=== PATIENT | male | born 1970 | race American Indian/Alaskan Native ===

== ENCOUNTER 2017-08-10 11:44 | Emergency (ER) | payer OTHER ==
[2017-08-10 11:47] VITALS: BMI 29.7
[2017-08-10 11:50] VITALS: BP 131/84; PULSE 95; RESP 18; TEMP 98; O2SAT 97
[2017-08-10] MEDS ORDERED: Ciprofloxacin/Dexamethasone OTIC SUSP AD STA (12:10)
[2017-08-10] MEDS ORDERED: Amoxicillin-Clav 875-125 mg Tab PO STA (12:15)
--- NOTE | 2017-08-10 12:15 | ED PDOC ---
Arrival/HPI - General Chief Complaint: ENT Problem Time Seen by Provider: 08/10/17 11:50 Historian: Patient - History of Present Illness Narrative History of Present Illness (Text): 08/10/17 12:11 47yo male with no PMHx who present with complaint of possible lodged foreign body and pain to his left ear x 2days. Notes that feeling of stucked FB to the ear started after putting iPhone ear plug in his ear. Came to ED today for the worsening pain. Denies bleeding, drainage, odor, any other complaint. Past Medical History - Provider Review Nursing Documentation Reviewed: Yes - Infectious Disease Hx of Infectious Diseases: None - Psychiatric Hx Substance Use: No - Anesthesia Hx Anesthesia: No Family/Social History - Physician Review Nursing Documentation Reviewed: Yes Family/Social History: Unknown Family HX Smoking Status: Light Smoker < 10 Cigarettes Daily Hx Alcohol Use: Yes Frequency of alcohol use: Socially Hx Substance Use: No Allergies/Home Meds Allergies/Adverse Reactions: Allergies No Known Allergies Allergy (Verified 08/10/17 11:47) Review of Systems - Physician Review All systems were reviewed & negative as marked: Yes - Review of Systems Constitutional: Normal Eyes: Normal ENT: Other (FB to left ear/pain) Respiratory: Normal Cardiovascular: Normal Gastrointestinal: Normal Genitourinary Male: Normal Musculoskeletal: Normal Skin: Normal Neurological: Normal Endocrine: Normal Hemo/Lymphatic: Normal Psychiatric: Normal Physical Exam Vital Signs Reviewed: Yes Vital Signs Temp Pulse Resp BP Pulse Ox 08/10/17 11:49 98.0 F 95 H 18 131/84 97 Temperature: Afebrile Blood Pressure: Normal Pulse: Regular Respiratory Rate: Normal Appearance: Positive for: Well-Appearing, Non-Toxic, Comfortable Pain Distress: None Mental Status: Positive for: Alert and Oriented X 3 - Systems Exam Head: Present: Atraumatic, Normocephalic Pupils: Present: PERRL Extroacular Muscles: Present: EOMI Conjunctiva: Present: Normal Ears: Present: Other (Whitish object noted in left TM) Mouth: Present: Moist Mucous Membranes Neck: Present: Normal Range of Motion Respiratory/Chest: Present: Clear to Auscultation, Good Air Exchange. No: Respiratory Distress, Accessory Muscle Use Cardiovascular: Present: Regular Rate and Rhythm, Normal S1, S2. No: Murmurs Abdomen: Present: Normal Bowel Sounds. No: Tenderness, Distention, Peritoneal Signs Back: Present: Normal Inspection Upper Extremity: Present: Normal Inspection. No: Cyanosis, Edema Lower Extremity: Present: Normal Inspection. No: Edema Neurological: Present: GCS=15, CN II-XII Intact, Speech Normal Skin: Present: Warm, Dry, Normal Color. No: Rashes Psychiatric: Present: Alert, Oriented x 3, Normal Insight, Normal Concentration Medical Decision Making ED Course and Treatment: 08/10/17 12:14 Plastic cover of ear plug removed from left war with ear curettes and clamp. TM erythema noted. No bleeding. No drainage. Pt will be started on Augmentin for otitis Referred to his PMD/ENT TRT ED for any new or worsening symptoms Disposition/Present on Arrival - Present on Arrival Any Indicators Present on Arrival: No History of DVT/PE: No History of Uncontrolled Diabetes: No Urinary Catheter: No History of Decub. Ulcer: No History Surgical Site Infection Following: None - Disposition Have Diagnosis and Disposition been Completed?: Yes Diagnosis: Foreign body, Acute otitis media Disposition: HOME/ ROUTINE Disposition Time: 12:20 Patient Plan: Discharge Condition: STABLE Discharge Instructions (ExitCare): Otitis Media (ED), Ear Foreign Body (ED) Additional Instructions: Follow up with your doctor/ENT Return to ED for any new or worsening symptoms Prescriptions: Amoxicillin/Clavulanate [Augmentin 875 MG-125 MG] 1 tab PO BID #14 tab Referrals: Elisa Merida, [Primary Care Provider] - Follow up with primary Yoel Flowers DO [Staff Provider] - Follow up with primary
== END 2017-08-10 12:35 | disposition home or self-care (01) ==
LOC: ED 11:44
DX: T16.2XXA Foreign body in left ear, initial encounter (principal); X58.XXXA Exposure to other specified factors, initial encounter; Y92.9 Unspecified place or not applicable; H66.92 Otitis media, unspecified, left ear; F17.210 Nicotine dependence, cigarettes, uncomplicated

== ENCOUNTER 2017-11-15 12:40 | Emergency (ER) | payer OTHER ==
[2017-11-15 12:40] VITALS: BMI 29.7
[2017-11-15 13:05] VITALS: RESP 18; TEMP 98.3; O2SAT 99
[2017-11-15] MEDS ORDERED: Famotidine 20mg/50ml 20 MG/50 ML BAG IVPB STA (13:40)
[2017-11-15] MEDS ORDERED: Atrop/Hyosc/Scopal/PB Elixir (120 ml) PO STA (13:41)
[2017-11-15] MEDS ORDERED: Alum-Mag Hydrox-Simethicone Susp (30 mL) PO STA (13:41)
--- NOTE | 2017-11-15 13:51 | ED PDOC ---
Arrival/HPI - General Chief Complaint: GI Problem Time Seen by Provider: 11/15/17 13:29 Historian: Patient - History of Present Illness Narrative History of Present Illness (Text): 11/15/17 13:40 47 year old male, with no significant PMH, presents to the emergency department complaining of burning sensation in his stomach that radiates upwards causing him to belch and hiccup. Patient reports the symptoms have become worse causing him he makes himself vomit to relief discomfort. patient denies other complaints. No chest pain or shortness of breathe. No dizziness or lightheadedness PMD: None Time/Duration: < week Symptom Onset: Gradual Symptom Course: Worsening Past Medical History - Provider Review Nursing Documentation Reviewed: Yes - Infectious Disease Hx of Infectious Diseases: None - Psychiatric Hx Substance Use: No - Anesthesia Hx Anesthesia: No Family/Social History - Physician Review Nursing Documentation Reviewed: Yes Family/Social History: Unknown Family HX Smoking Status: Light Smoker < 10 Cigarettes Daily Hx Alcohol Use: Yes Hx Substance Use: No Allergies/Home Meds Allergies/Adverse Reactions: Allergies No Known Allergies Allergy (Verified 11/15/17 13:07) Review of Systems - Physician Review All systems were reviewed & negative as marked: Yes - Review of Systems Constitutional: absent: Fevers Respiratory: Normal. absent: SOB Cardiovascular: absent: Chest Pain Gastrointestinal: Abdominal Pain, Nausea, Vomiting Genitourinary Male: absent: Dysuria Physical Exam Vital Signs Reviewed: Yes Vital Signs Temp Pulse Resp BP Pulse Ox 11/15/17 15:08 81 18 128/74 99 11/15/17 13:04 98.3 F 89 18 132/79 99 Temperature: Afebrile Blood Pressure: Normal Pulse: Regular Respiratory Rate: Normal Appearance: Positive for: Well-Appearing, Non-Toxic, Comfortable Pain Distress: None Mental Status: Positive for: Alert and Oriented X 3 - Systems Exam Head: Present: Atraumatic, Normocephalic Pupils: Present: PERRL Extroacular Muscles: Present: EOMI Conjunctiva: Present: Normal Mouth: Present: Moist Mucous Membranes, Normal Tounge Neck: Present: Normal Range of Motion Respiratory/Chest: Present: Clear to Auscultation, Good Air Exchange. No: Respiratory Distress, Accessory Muscle Use, Wheezes, Rales, Rhonchi Cardiovascular: Present: Regular Rate and Rhythm, Normal S1, S2. No: Murmurs Abdomen: Present: Normal Bowel Sounds. No: Tenderness, Distention, Peritoneal Signs, Rebound, Guarding Neurological: Present: GCS=15, CN II-XII Intact, Speech Normal Skin: Present: Warm, Dry, Normal Color. No: Rashes Psychiatric: Present: Alert, Oriented x 3, Normal Insight, Normal Concentration Medical Decision Making ED Course and Treatment: 11/15/17 Impression: 47 year old male, with unremarkable physical exam complaining of belching and hiccups. Differential Diagnosis included but are not limited to: gastritis vs. GERD Plan: -- EKG -- Labs -- , Lidocaine, Pepcid, Reglan -- Reassess and disposition Progress Notes: 11/15/17 13:55 EKG: Ordered, reviewed, and independently interpreted the EKG. Rate : 72 BPM Rhythm : NSR Interpretation : No ST-segment elevations or depressions, no T-wave inversions, normal intervals. Upon reevaluatin, patient no longer had symptoms. He's tolerating PO fluids. He wants to go home. He will f/u with the clinic in 1-2days. Also gave referral for GI doctor. He will return tot he ED if symptoms worsen or any other concern. - Lab Interpretations Lab Results: 11/15/17 14:00 11/15/17 14:00 Lab Results 11/15/17 14:00: Sodium 141, Potassium 4.0, Chloride 102, Carbon Dioxide 27, Anion Gap 16, BUN 14, Creatinine 0.8, Est GFR ( Amer) > 60, Est GFR (Non- Af Amer) > 60, Random Glucose 82, Calcium 9.1, Magnesium 2.1, Total Bilirubin 0.4, AST 18, ALT 22, Alkaline Phosphatase 51, Total Protein 7.0, Albumin 4.1, Globulin 3.0, Albumin/Globulin Ratio 1.4, Lipase 93 11/15/17 14:00: WBC 11.0, RBC 4.48, Hgb 13.6 L, Hct 40.0 L, MCV 89.3, MCH 30.4, MCHC 34.0, RDW 13.7, Plt Count 277, MPV 10.5, Gran % 56.3, Lymph % (Auto) 32.9, [place] % (Auto) 8.0 H, Eos % (Auto) 2.3, Baso % (Auto) 0.5, Gran # 6.23, Lymph # ( Auto) 3.6 H, [place] # (Auto) 0.9 H, Eos # (Auto) 0.3, Baso # (Auto) 0.05 I have reviewed the lab results: Yes - RAD Interpretation Locomotive Inspector: Radiologist - EKG Interpretation Interpreted by ED Physician: Yes Type: 12 lead EKG - Medication Orders Current Medication Orders: Discontinued Medications Al Hydrox/Mg Hydrox/Simethicone (Maalox Plus 30 Ml) 30 ml PO STAT STA Stop: 11/15/17 13:42 Last Admin: 11/15/17 14:10 Dose: 30 ml Belladonna/Phenobarbital ( Elixir) 10 ml PO STAT STA Stop: 11/15/17 13:42 Last Admin: 11/15/17 14:21 Dose: 10 ml Famotidine (Pepcid 20mg/50ml Premix) 20 mg in 50 mls @ 100 mls/hr IVPB STAT STA Stop: 11/15/17 14:09 Last Admin: 11/15/17 14:10 Dose: 100 mls/hr eMAR Start Stop Document 11/15/17 14:10 MARY (Rec: 11/15/17 14:13 MARY [id number]) Intravenous Solution Start Date 11/15/17 Start Time 14:10 End Date 11/15/17 End time 14:40 Total Infusion Time 30 Lidocaine HCl (Lidocaine 2% Viscous) 10 ml MM STAT STA Stop: 11/15/17 13:42 Last Admin: 11/15/17 14:10 Dose: 10 ml Metoclopramide HCl (Reglan) 10 mg IVP STAT STA Stop: 11/15/17 13:42 Last Admin: 11/15/17 14:09 Dose: 10 mg IVP Administration Document 11/15/17 14:09 MARY (Rec: 11/15/17 14:10 MARY [id number]) Charges for Administration # of IVP Administrations 1 - Scribe Statement The provider has reviewed the documentation as recorded by the [facility] Provider Scribe Attestation: All medical record entries made by the Scribe were at my direction and personally dictated by me. I have reviewed the chart and agree that the record accurately reflects my personal performance of the history, physical exam, medical decision making, and the department course for this patient. I have also personally directed, reviewed, and agree with the discharge instructions and disposition. Disposition/Present on Arrival - Present on Arrival Any Indicators Present on Arrival: No History of DVT/PE: No History of Uncontrolled Diabetes: No Urinary Catheter: No History of Decub. Ulcer: No History Surgical Site Infection Following: None - Disposition Have Diagnosis and Disposition been Completed?: Yes Diagnosis: GERD (gastroesophageal reflux disease) Disposition: HOME/ ROUTINE Disposition Time: 15:45 Patient Plan: Discharge Condition: IMPROVED Additional Instructions: Mr Rucker thank you for letting us take care of you today. Your provider was Dr. Rea. You were treated for Abdominal Pain, GERD. The emergency medical care you received today was directed at your acute symptoms. If you were prescribed any medication, please fill it and take as directed. It may take several days for your symptoms to resolve. Return to the Emergency Department if your symptoms worsen, do not improve, or if you have any other problems. Please contact your doctor or call one of the physicians/clinics you have been referred to that are listed on the Patient Visit Information form that is included in your discharge packet. Bring any paperwork you were given at discharge with you along with any medications you are taking to your follow up visit. Our treatment cannot replace ongoing medical care by a primary care provider (PCP) outside of the emergency department. Thank you for allowing the [facility] team to be part of your care today. If you had an X-Ray or CT scan: A Radiologist will review the ED reading if any change in treatment is needed we will contact you. If you had a blood, urine, or wound culture: It will take several days for the results, if any change in treatment is needed we will contact you. If you had an STI test: It will take 48 hours for the results. Please call after 1 week if you have not heard back. Prescriptions: Aluminum Hydroxide/Magnesium H [Maalox 30 ml] 30 ml PO Q8 #1 bottle Ranitidine HCl [Zantac] 150 mg PO BID PRN #30 tablet PRN Reason: Pain, Mild (1-3) Referrals: Rock Muñoz MD [Staff Provider] - Follow up with primary Forms: [employer]ia (Vietnamese), WORK NOTE
[2017-11-15 14:12] LABS: BASO # 0.05 K/mm3 (0.0-2.0); BASO % 0.5 % (0.0-3.0); EOS # 0.3 (0.0-0.7); EOS % 2.3 % (1.5-5.0); GRAN # 6.23 (1.4-6.5); GRAN % 56.3 % (50.0-68.0); HEMOGLOBIN 13.6 g/dL (14.0-18.0); LYMPH # 3.6 (1.2-3.4); LYMPH % 32.9 % (22.0-35.0); MEAN CELL VOLUME 89.3 fl (80.0-105.0); MEAN CORPUSCULAR HEMOGLOBIN 30.4 pg (25.0-35.0); MEAN PLATELET VOLUME 10.5 fl (7.0-11.0); MONO # 0.9 (0.1-0.6); RBC 4.48 10^6/uL (3.5-6.1); RED CELL DISTRIBUTION WIDTH 13.7 % (11.5-14.5)
[2017-11-15 14:20] LABS: ALB/GLOB RATIO 1.4 (1.1-1.8); ALBUMIN 4.1 g/dL (3.0-4.8); ALT/SGPT 22 U/L (7-56); AST/SGOT 18 U/L (17-59); BLOOD UREA NITROGEN 14 mg/dL (7-21); CALCIUM 9.1 mg/dL (8.4-10.5); GFR AFRICAN-AMERICAN > 60; GFR NON-AFRICAN AMERICAN > 60; LIPASE 93 U/L (23-300)
[2017-11-15 15:08] VITALS: BP 128/74; PULSE 81
--- NOTE | 2017-11-15 22:19 | CARD ---
APPROVED REPORT EKG Measurement Heart [id number] <Conclusion> Normal sinus rhythm with sinus arrhythmia Normal ECG
== END 2017-11-15 15:45 | disposition home or self-care (01) ==
LOC: ED 12:40
DX: K21.9 Gastro-esophageal reflux disease without esophagitis (principal)
CPT/HCPCS: 80053; 83690; 83735; 85025; 93005; 96365; 96375; 99283; J2765